=== PATIENT | female | born 1995 | race Hispanic/Latino ===

== ENCOUNTER 2017-03-16 18:51 | Observation (INO) | payer SELFPAY ==
--- NOTE | 2017-03-16 19:50 | RAD ---
LEFT ANKLE THREE VIEWS 03/16/17 HISTORY: Pain. Injury. FINDINGS: There is a trimalleolar fracture with associated soft tissue swelling. Widening of the medial joint s pace suggesting ligamentous injury. IMPRESSION: Trimalleolar fracture. Dedicated left tibia and fibula radiograph is recommended to exclude possible injury POS: [facility]
[2017-03-16] MEDS ORDERED: Ketorolac Tromethamine 30 MG/ML VIAL ONE (20:53)
[2017-03-16] MEDS ORDERED: HYDROcodone/Acetaminophen 5/325 mg Tablet ONE (20:54)
--- NOTE | 2017-03-16 21:16 | RAD ---
LEFT TIBIA AND FIBULA TWO VIEWS 03/16/17 HISTORY: Trimalleolar fracture. FINDINGS: There is a trimalleolar fracture. The remainder of the tibia and fibula do not demonstrate any fractu re. IMPRESSION: Distal tibia and fibula fracture. No additional fractures. POS: [facility]
[2017-03-16] MEDS ORDERED: Morphine 4 MG/ML VIAL ONE ×2 (21:58→22:27)
[2017-03-16] MEDS ORDERED: Ondansetron HCl/PF 4 MG/2 ML Vial ONE (21:58)
[2017-03-16 22:19] LABS: #Basophils 0.1 thou/uL (0.0-0.2); #Lymphocytes 2.4 thou/uL (1.20-3.40); #Monocytes 0.6 thou/uL (0.11-0.59); %Basophils 0.6 % (0.0-1.0); %Eosinophils 0.3 % (0.0-10.0); %Lymphocytes 15.7 % (21.0-51.0); %Monocytes 3.9 % (0.0-10.0); Hematocrit 37.8 % (36.0-47.0); Mean Platelet Volume 7.1 fL (7.4-10.4); Red Blood Cell (RBC) Count 4.22 mill/uL (4.20-5.40); White Blood Cell (WBC) Count 15.1 thou/uL (4.8-10.8)
[2017-03-16 22:38] LABS: ALT (SGPT) 18 U/L (8-55); AST (SGOT) 15 U/L (5-34); Alkaline Phosphatase 75 U/L (40-150); Anion Gap 12 mmol/L (10-20); BUN (Urea Nitrogen) 9 mg/dL (7.0-18.7); Bilirubin, Total 0.3 mg/dL (0.2-1.2); Calc. Creatinine Clearance 0 mL/min (70-130); Calcium 9.9 mg/dL (7.8-10.44); Carbon Dioxide 25 mmol/L (22-29); Chloride 106 mmol/L (98-107); Estimated GFR-MDRD Greater than 90; Globulin 3.9 g/dL (2.4-3.5); Protein, Total 8.2 g/dL (6.0-8.3)
--- NOTE | 2017-03-16 23:06 | RAD ---
CHEST ONE VIEW 03/16/17 HISTORY: Pain and swelling. Preoperative exam. COMPARISON: None. FINDINGS: Normal cardiac silhouette. Pulmonary vessels and hilum are normal. Costophrenic angles are clear. No mass. No consolidation. No pneumothorax or osseous abnormalities. IMPRESSION: No acute cardiopulmonary process. POS: [facility]
--- NOTE | 2017-03-16 23:09 | RAD ---
EXAM: TWO VIEWS LEFT ANKLE 03/16/17 HISTORY: Fracture. COMPARISON: 03/16/17. FINDINGS: Interval placement of a fiberglass splint. Trimalleolar fracture is redemonstrated. There is associat ed soft tissue swelling. IMPRESSION: Fracture as above. POS: [facility]
[2017-03-17] MEDS ORDERED: Morphine 2 mg/2ml in 0.9% NaCl PF SYRINGE IVP PRN (00:36)
[2017-03-17] MEDS ORDERED: Dextrose 5% in Water 1,000 ML IV PRN (00:36)
[2017-03-17] MEDS ORDERED: Dextrose 50% Abboject 50 ML SYRINGE SLOW IVP PRN (00:36)
[2017-03-17] MEDS ORDERED: Ondansetron ODT 4 MG TAB PO PRN (00:36)
[2017-03-17] MEDS ORDERED: Ondansetron HCl/PF 4 MG/2 ML Vial IVP PRN (00:36)
[2017-03-17] MEDS ORDERED: Acetaminophen 500 MG TAB PO SCH ×2 (00:45→14:30)
[2017-03-17] MEDS ORDERED: traMADol HCl 50 MG TAB PO SCH ×2 (00:45→14:30)
[2017-03-17] MEDS: Sodium Chloride 0.9% 1,000 ML IV SCH ×2 (01:17→13:06)
[2017-03-17] MEDS: Ketorolac Tromethamine 30 MG/ML VIAL IVP SCH ×3 (02:25→14:23)
--- NOTE | 2017-03-17 03:14 | HP ---
DATE OF ADMISSION: 03/16/2017 ATTENDING PHYSICIAN: Humphrey Cuevas MD HISTORY OF PRESENT ILLNESS: Tara Castelan is a 21-year-old female who presented to [facility] post mechanical fall. Per patient, she was going outside to play in the snow, slipped and fell in the ramp, twisting her ankle. She denies head trauma or loss of consciousness. She was evaluated in the emergency room and found to have a left ankle fracture. Upon my evaluation, the patient has a chief complaint of left ankle pain. Orthopedic Surgery was notified and Trauma Services was asked to admit. PAST MEDICAL HISTORY: None. ALLERGIES: None. HOME MEDICATIONS: None. CHRONIC MEDICAL ILLNESS: None. PAST SURGICAL HISTORY: Correction of polydactyly, tonsillectomy, adenoidectomy, ovarian cyst removal , as well as pelvic mass removal/cystadenoma. SOCIAL HISTORY: Lives at home with parents. 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 Denies alcohol, tobacco , or illicit drug use. FAMILY HISTORY: Patient denies any family history of any chronic medical illnesses. REVIEW OF SYSTEMS: Negative except as indicated in the HPI. PHYSICAL EXAMINATION: VITAL SIGNS: Blood pressure 110/79, pulse 100, respiration rate 18, O2 sat 100% on room air. GENERAL: A well-developed, well-nourished female in no acute distress, resting in bed. PULMONARY: Normal work of breathing, symmetric rise. Clear to auscultation bilaterally. CARDIOVASCULAR: Regular rate and rhythm. GASTROINTESTINAL: Abdomen is soft, nontender, nondistended. Bowel sounds positive. MUSCULOSKELETAL: Bilateral upper extremities within normal limits. Right lower extremity within nor mal limits. Left lower extremity, ankle is swollen with ecchymosis. She is neurovascularly intact, distal to the side of her injury. NEUROLOGIC: GCS of 15. No focal deficit noted. LABORATORY FINDINGS: WBC 15.1, hemoglobin 12.9, hematocrit 37.8, platelet count 268. Sodium 139, po tassium 4.1, chloride 106, carbon dioxide 25, BUN 9, creatinine 0.68, glucose 103. AST and ALT withi n normal limits. Urine test pending. RADIOGRAPHIC FINDINGS: X-ray of the tibia and fibula significant for a distal tibia and fibular frac ture. X-ray of the left ankle demonstrates a trimalleolar fracture. Chest x-ray is without acute tr aumatic injury or acute cardiopulmonary process, post-reduction ankle x-ray re-demonstrates trimalleo lar fracture. ASSESSMENT: 1. Status post mechanical fall. 2. Acute traumatic pain. 3. Obesity. PLAN: 1. Admit to Trauma Services. 2. Orthopedic Surgery has been notified and plans for operative intervention tomorrow. 3. Perioperative pain management. 4. N.p.o. after midnight. 5. Gastritis and DVT prophylaxis as appropriate. 6. Trauma attending has been notified of admission. Plans for admission were discussed with the patient and family who were at bedside. All questions we re answered at the time of this dictation.
[2017-03-17] MEDS: Acetaminophen 500 MG TAB PO SCH ×4 (06:07→23:54)
[2017-03-17] MEDS: traMADol HCl 50 MG TAB PO SCH ×4 (06:07→23:54)
--- NOTE | 2017-03-17 07:44 | CON ---
DATE OF CONSULTATION: 03/17/2017 REQUESTING PHYSICIAN: Dr. Humphrey Cuevas CONSULTING PHYSICIAN: Dr. Jerome Finley REASON FOR CONSULTATION: Left ankle bimalleolar fracture. HISTORY OF PRESENT ILLNESS: Tara is a 21-year-old female who was playing outside in the snow, s lipped and fell, resulting in left ankle bimalleolar fracture. She was brought to [facility] and admitted to the Trauma Team with a diagnosis of left ankle bimalleolar fracture. Closed reduction was performed in the emergency room, she was placed in a posterior splint and our s ervice was consulted for evaluation and definitive orthopedic management of the problem. PAST MEDICAL HISTORY: Negative. PAST SURGICAL HISTORY: Polydactyly, tonsillectomy, adenoidectomy, ovary cyst, pelvic mass, adenoma. SOCIAL HISTORY: She lives at home with parents, takes care of her mother, denies any ethanol, tobacc o or illicit drug abuse. PHYSICAL EXAMINATION: GENERAL: This is a well-nourished, well-developed, mildly obese female appearing stated age in no ap parent distress or discomfort. HEENT: Normocephalic, atraumatic. CHEST: Clear to auscultation. HEART: Regular rhythm. EXTREMITIES: Trilaminar splint is in place on the left ankle. She has good capillary refill, full d igital excursion, minimal to moderate hallux valgus is appreciated on the great digit, but otherwise full digital excursion is observed. IMAGING STUDIES: Two views left ankle demonstrate a Navarrete B distal fibula with accompanying medial m alleolar displaced rotated fracture. IMPRESSION: Left ankle bimalleolar fracture, closed. PLAN: 1. The risks, benefits, options, alternatives, and rationale for proceeding with open reduction and internal fixation of the left ankle has been explained in great detail. The patient is ready to proc eed. All questions were answered. No guarantee of outcome was stated or implied. 2. Please see orders.
[2017-03-17] MEDS ORDERED: CEFAZOLIN 1 GM, Syringe 2.5 ML in Sterile Water 7.5 ML SLOW IVP SCH (08:15)
[2017-03-17] MEDS: Famotidine/PF 20 mg/2ml Vial SLOW IVP SCH ×2 (08:21→21:36)
[2017-03-17] MEDS ORDERED: FLU VACC QS2017-18 36 mo. & older 0.5 ML SYRINGE IM ONE (09:00)
[2017-03-17] MEDS ORDERED: Dexamethasone 20 MG/5 ML VIAL ONE ×2 (10:57→16:14)
[2017-03-17] MEDS ORDERED: Fentanyl 100 MCG/2 ML VIAL ONE ×2 (10:57→10:58)
[2017-03-17] MEDS ORDERED: Midazolam HCl 2 mg/2 ml Vial ONE (10:58)
[2017-03-17] MEDS ORDERED: Dexamethasone 4 mg/ml Vial ONE ×2 (10:59)
[2017-03-17] MEDS ORDERED: Bupivacaine HCl 0.5%/Epinephrine 1:200,000/PF 30 ml Vial ONE (15:17)
[2017-03-17] MEDS ORDERED: Bupivacaine PF 0.5% 30 ML VIAL ONE (15:17)
--- NOTE | 2017-03-17 15:47 | RAD ---
LEFT ANKLE 03/17/17 Three fluoroscopic left ankle. INDICATION: Fracture fixation, trauma. Metallic plate and screw fixation involves the distal fibula. Metallic screws traverse the medial mal leolus. Osseous detail is limited on the provided fluoroscopic views. There is persistent fracture margaret cency with mild displacement involving the distal tibia and fibula. IMPRESSION: Intraoperative views for fixation of distal tibia and fibula. POS: [facility]
[2017-03-17] MEDS ORDERED: Ondansetron HCl/PF 4 MG/2 ML Vial ONE (16:14)
[2017-03-17] MEDS ORDERED: Propofol 200 MG/20 ML VIAL ONE (16:14)
[2017-03-17] MEDS ORDERED: Ketorolac Tromethamine 30 MG/ML VIAL ONE (16:14)
[2017-03-17] MEDS ORDERED: Lidocaine 1% PF 5 ML VIAL ONE (16:14)
--- NOTE | 2017-03-17 19:12 | PRG ---
DATE OF SERVICE: 03/17/2017 SUBJECTIVE: The patient is hospital day #2, status post ground level fall which she sustained a left trimalleolar fracture. She has currently been n.p.o., overnight awaiting orthopedic evaluation for planned ORIF today. The patient has no complaints. Her pain is controlled. OBJECTIVE: VITAL SIGNS: Temperature is 97.9, heart rate 93, blood pressure 106/71, respirations 16, oxygen satu ration is 96% on room air. HEENT: Unremarkable. CHEST: Clear to auscultation with good inspiratory and expiratory effort. HEART: Regular rate and rhythm. ABDOMEN: Soft, flat, nontender with active bowel sounds. PELVIS: Stable. EXTREMITIES: Neurovascularly intact x4. The left ankle was in a posterior splint. There are no labs or x-rays this morning. ASSESSMENT AND PLAN: 1. Status post ground-level fall. 2. Left trimalleolar fracture. Plan will be to continue pain control. Await orthopedic procedure and postoperatively resume the pat ient's diet, transition her to p.o. pain meds and begin physical and occupational therapy. The evalu ation and examination were done with Dr. Rousseau this morning during rounds.
[2017-03-17] MEDS: Senokot S 8.6-50 MG TAB PO SCH (21:35)
[2017-03-17] MEDS: Ibuprofen 800 MG TAB PO SCH (21:36)
[2017-03-17] MEDS: Aspirin 81 mg Enteric Coated Tablet PO SCH (21:36)
[2017-03-17] MEDS: CEFAZOLIN/Water 2 GM/20 ML SYRINGE SLOW IVP SCH (21:36)
[2017-03-18] MEDS: CEFAZOLIN/Water 2 GM/20 ML SYRINGE SLOW IVP SCH (03:46)
[2017-03-18] MEDS: traMADol HCl 50 MG TAB PO SCH ×2 (05:33→11:28)
[2017-03-18] MEDS: Acetaminophen 500 MG TAB PO SCH ×2 (05:33→11:40)
[2017-03-18] MEDS: Ibuprofen 800 MG TAB PO SCH (05:33)
[2017-03-18] MEDS: Senokot S 8.6-50 MG TAB PO SCH (08:41)
[2017-03-18] MEDS: Famotidine/PF 20 mg/2ml Vial SLOW IVP SCH (08:42)
[2017-03-18] MEDS: Aspirin 81 mg Enteric Coated Tablet PO SCH (08:42)
[2017-03-18] MEDS ORDERED: Acetaminophen/Codeine 30-300mg Tablet PO PRN (11:35)
[2017-03-18 12:20] VITALS: BP 114/79; TEMP 98
--- NOTE | 2017-03-20 12:52 | DIS ---
DATE OF ADMISSION: 03/16/2017 DATE OF DISCHARGE: 03/18/2017 ADMITTING DIAGNOSES: 1. Status post ground level fall. 2. Acute traumatic pain. 3. Left trimalleolar ankle fracture. CONSULTATIONS: Orthopedics, Dr. Finley. PROCEDURES: Open reduction internal fixation of left medial and lateral malleolus. SUMMARY: The patient is a 21-year-old woman, who was reportedly running and slipped on some ice and sustaining her above injuries. The patient will be brought to the emergency department, evaluated, e xamined, and found to have the above injuries that day should be taken to the operating room to under go her procedure which she tolerated well. She worked with physical and occupational therapy and at the time of discharge, she was ambulatory on crutches. Her pain was controlled. She was tolerating a diet. She will follow up with Dr. Finley in his clinic in 10-14 days or sooner as needed.
--- NOTE | 2017-03-20 12:52 | OP ---
DATE OF SURGERY: 03/17/2017 PREOPERATIVE DIAGNOSIS: Left trimalleolar ankle fracture. POSTOPERATIVE DIAGNOSIS: Left trimalleolar ankle fracture. SURGICAL PROCEDURE: Open reduction internal fixation left medial and lateral malleolus. ANESTHESIA: General. SURGEON: Jerome Finley M.D. TOURNIQUET TIME: 57 minutes at 300 mmHg. IMPLANTS: Synthes 4-hole 1/3 tubular plate for the lateral malleolus with a combination of small fra gment screws. COMPLICATIONS: None. DRAINS: None. SPECIMEN: None. OUTCOME: Satisfactory. INDICATIONS: Patient is a pleasant 21-year-old lady status post twisting injury to the left ankle, s ustaining a trimalleolar ankle fracture with a small posterior malleolar fragment. After discussion with patient including risks and benefits, we decided to proceed with open reduction and internal fix ation. Informed consent has been obtained and I believe all questions answered. PROCEDURE IN DETAIL: After the induction of general anesthesia, the patient was positioned supine on the OR table and then a sterile prep and drape was performed of the left lower extremity. The limb was then exsanguinated with Esmarch bandage and tourniquet inflated to 300 mmHg. A longitudinal late ral incision was made over the lateral malleolus. After skin was sharply incised, dissection was car ried down bluntly to the underlying fractured lateral malleolus. Using minimal subperiosteal dissect ion, the lateral cortex of the fibula was freed of soft tissue and then the fracture edges freed of h ematoma and interposed soft tissue. The fracture was then reduced and held in place with bone tenacu lum while an anterior to posterior interfragmentary screw was applied in standard fashion. This was followed by precontouring of a 1/3 tubular hole Synthes plate to fit the lateral cortex of the distal fibula. This was then held in place with 3 cortical screws proximally and three cancellous screws d istally. At the completion of this, AP and lateral C-arm images were obtained that showed anatomic a lignment of the mortise and acceptable positioning of the hardware. Next, a small vertical incision was made medially. Again skin was sharply incised and then dissection carried down bluntly to the un derlying fracture of the medial malleolus. The medial malleolus was reduced and held in place with b one tenaculum and then two 4.0 mm partially threaded cancellous screws were passed from the tip of th e medial malleolus obliquely across the fracture into the distal tibial metaphysis getting compressio n across the fracture line. At completion of this, final AP, lateral, and mortise views were obtaine d of the ankle that showed anatomic alignment. The two wounds were then irrigated with bulb syringe and closed in layers with 0 Vicryl deep, followed by 2-0 Vicryl and then nylon for the skin. A Xerof orm gauze, Webril, and fiberglass splint was applied to the ankle and then tourniquet was let down an d patient was transferred to recovery room in stable condition. There were no complications and she tolerated the procedure well.
== END 2017-03-18 13:14 | disposition home or self-care (01) ==
LOC: ERS 18:51 → SURG B 23:22
PROVIDERS: ADMIT Specialist; ATTEND Specialist
PROC: 0QSK04Z Reposition Left Fibula with Internal Fixation Device, Open Approach (ICD-10-PCS; principal; 2017-03-18)
PROC: 0QSH04Z Reposition Left Tibia with Internal Fixation Device, Open Approach (ICD-10-PCS; 2017-03-18)
DX: S82.852A Displaced trimalleolar fracture of left lower leg, initial encounter for closed fracture (principal); G89.11 Acute pain due to trauma; E66.9 Obesity, unspecified; W01.198A Fall on same level from slipping, tripping and stumbling with subsequent striking against other object, initial encounter; Y92.89 Other specified places as the place of occurrence of the external cause; Z68.41 Body mass index [BMI] 40.0-44.9, adult; Z90.89 Acquired absence of other organs; Z98.890 Other specified postprocedural states
CPT/HCPCS: 27818; 36415; 71010; 76001; 80053; 84702; 85025; 86850; 86900; 86901; 96361; 96372; 96374; 96375; 96376; A4216; C1713; G0378; G8978-GP-CJ; G8979-GP-CJ; G8980-GP-CJ; J0670; J0690; J1100; J1885; J2001; J2250; J2270; J2405; J2704; J3010; S0020; S0028

== ENCOUNTER 2017-06-05 10:58 | Day surgery (SDC) | payer SELFPAY ==
[2017-06-01 11:13] VITALS: BMI 38.9
[2017-06-05] MEDS ORDERED: CEFAZOLIN/Water 2 GM/20 ML SYRINGE ONE (11:22)
[2017-06-05] MEDS ORDERED: Midazolam HCl 2 mg/2 ml Vial ONE (12:32)
[2017-06-05] MEDS ORDERED: Fentanyl 100 MCG/2 ML VIAL ONE ×2 (12:32→14:07)
[2017-06-05] MEDS ORDERED: Lidocaine 1% (PF) 30 ML VIAL ONE (12:42)
[2017-06-05] MEDS ORDERED: Bupivacaine HCl 0.5%/Epinephrine 1:200,000/PF 30 ml Vial ONE (13:15)
--- NOTE | 2017-06-05 13:49 | OP ---
OPERATION: Left ankle hardware removal. PREOPERATIVE DIAGNOSIS: Left ankle fracture with prominent medial malleolar hardware. POSTOPERATIVE DIAGNOSIS: Left ankle fracture with prominent medial malleolar hardware. COMPLICATIONS: None. ESTIMATED BLOOD LOSS: Minimal. SURGEON: Brian Kumar M.D. ANESTHESIA: General plus local. INDICATIONS: Ms. Castelan is a 21-year-old female who fractured her left ankle. Her ankle fracture has healed, although she has prominence of her medial hardware and instrumentation. This is causing ongo ing pain. She has been indicated for screw removal to restore full function and relief pain. Risks have been reviewed. She elected to proceed with the operation. DESCRIPTION OF PROCEDURE: Ms. Castelan was identified in the preoperative holding area. Her correct ext remity was marked. She was carried to the operating room. She was positioned supine. General anest hesia was induced. A multidisciplinary timeout was performed. The left lower extremity was prepped and draped in sterile fashion. We began the procedure with a small incision over the medial malleolus. We dissected down through th e subcutaneous tissues and exposed the medial malleolar screw heads. Two screws were identified and cleared of soft tissue. We then removed this using appropriate screwdriver. We irrigated the wound and then closed the subcutaneous tissue with 2-0 Vicryl suture followed by 3-0 nylon for the skin. A sterile dressing was applied. The patient was taken to recovery room in good condition without comp lication.
--- NOTE | 2017-06-05 14:59 | RAD ---
LEFT ANKLE 1 VIEW: Date: 06/05/17 HISTORY: Fracture. COMPARISON: Radiograph dated 03/17/17. FINDINGS: The medial malleolar screw has been removed. Lateral plate and screw hardware is revisualized. IMPRESSION: Interval removal of the medial malleolar partially threaded cannulated screws. POS: [facility]
== END 2017-06-05 16:00 | disposition home or self-care (01) ==
LOC: SDC 10:58
PROVIDERS: ATTEND Orthopaedic Surgery
PROC: 2W5 Placement, Anatomical Regions, Removal (ICD-10-PCS; principal; 2017-06-05)
DX: T84.84XA Pain due to internal orthopedic prosthetic devices, implants and grafts, initial encounter (principal); E66.9 Obesity, unspecified; Z68.39 Body mass index [BMI] 39.0-39.9, adult; Z79.899 Other long term (current) drug therapy; Z88.5 Allergy status to narcotic agent; Z98.890 Other specified postprocedural states
CPT/HCPCS: 76001; 96374; J0670; J2001; J2250; J3010